=== PATIENT | female | born 1940 | race Caucasian/White ===

== ENCOUNTER 2022-06-16 10:48 | Outpatient (CLI) | payer MEDICARE, OTHER, SELFPAY ==
--- NOTE | ~2022-06-16 | MR_ITS ---
MRI of the right knee Clinical history: Pain Technique: Coronal proton density and proton density-weighted images, sagittal proton-density and T2 fat-sat images, and axial proton-density fat-saturated images were acquired. Findings: Anterior and posterior cruciate ligaments are intact. Medial collateral ligament and the la teral collateral complex are intact. Popliteus tendon is intact. There is complex, predominantly radial tearing at the posterior root of the medial meniscus. Horizont al tear probably extends into the posterior horn and body of the medial meniscus. No lateral meniscal tear seen. There is subchondral insufficiency fracture and/or developing osteochondral lesion of the medial femo ral condyle, linear T1 and T2 hypointensity, with extensive marrow edema throughout the medial femora l condyle. There is additional amorphous marrow edema in the medial tibial plateau region, likely richy ctive. 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 There is diffuse high-grade chondromalacia patella. Femoral trochlear cartilage and lateral compartme nt cartilage is relatively well preserved. Extensor mechanism is intact. Moderate to large joint effusion present. No Crum's cyst. Impression: Subchondral insufficiency fracture and/or developing osteochondral lesion of the medial femoral condy le, as detailed above, with extensive reactive marrow edema throughout the medial femoral condyle and in the medial tibial plateau. 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 Complex, predominantly radial tearing of the posterior root of the medial meniscus, with horizontal e xtending into the posterior horn and body segment. Reviewed, dictated and finalized at [facility]. WRITER Impression: Subchondral insufficiency fracture and/or developing osteochondral lesion of th e medial femoral condyle, as detailed above, with extensive reactive marrow cassandra ma throughout the medial femoral condyle and in the medial tibial plateau. 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 Complex, predominantly radial tearing of the posterior root of the medial menis cus, with horizontal extending into the posterior horn and body segment.
== END 2022-06-16 10:49 | disposition home or self-care (01) ==
PROVIDERS: PCP Family Medicine Adolescent Medicine; Visit Provider Nurse Practitioner
DX: M17.11 Unilateral primary osteoarthritis, right knee (principal)
CPT/HCPCS: 73721

== ENCOUNTER 2022-06-28 10:12 | Outpatient (CLI) | payer MEDICARE, OTHER, SELFPAY ==
--- NOTE | ~2022-06-28 | US_ITS ---
EXAMINATION:US venous doppler LE RT INDICATION:Leg swelling TECHNIQUE: Multiple grayscale, color flow and Doppler images of the right lower extremity deep venous systems were obtained and reviewed. COMPARISON:No prior studies for comparison. FINDINGS: The common femoral, superficial femoral and popliteal veins demonstrate normal respiratory variation, augmentation and compressibility. Color flow is also seen within the posterior tibial, pe roneal, greater saphenous and profunda veins. IMPRESSION: 1: No lower extremity deep venous thrombosis. Reviewed, dictated and finalized at location A. OPONE MILL WORKER
== END 2022-06-28 10:13 | disposition home or self-care (01) ==
PROVIDERS: PCP Family Medicine Adolescent Medicine; Visit Provider Nurse Practitioner
DX: M79.661 Pain in right lower leg (principal); M79.89 Other specified soft tissue disorders
CPT/HCPCS: 93971

== ENCOUNTER 2022-09-27 09:02 | Outpatient (CLI) | payer MEDICARE, OTHER, SELFPAY ==
--- NOTE | ~2022-09-27 | DEXA_ITS ---
Bone Density Report Name: DAVIS FARNSWORTH Age: 82 Sex: Female Ethnicity: White Date of : 1940 Indication: postmenopausal; screening for osteoporosis; prior fracture; Referring Provider: CLIFFORD ORELLANA Study: Bone densitometry was performed. Exam Date: September 27, 2022 Accession number: [id number] Bone Density: Region BMD T-score Z-score Classification Femoral Neck (Left) 0.736 -1.0 1.4 Normal Total Hip (Left) 1.061 1.0 3.2 Normal Femoral Neck (Right) 0.735 -1.0 1.4 Normal Total Hip (Right) 0.956 0.1 2.3 Normal Total Hip Mean 1.008 0.6 2.8 Normal World Health Organization criteria for BMD impression classify patients as: Normal (T-score at or above -1.0), Osteopenia (T-score between -1.0 and -2.5), or Osteoporosis (T-score at or below -2.5). 10-year Fracture Risk: FRAX not reported because: All T-scores for Spine Total, Hip Total, Femoral Neck at or above -1.0 Clinical Information Provided by Patient: Has had a low trauma fracture Has used the following medications: Vitamin D, Calcium Patient maximum height was 62.5 Menopause Age: 44 No regular weight bearing exercise Does not regularly consume dairy products Onset of menses at age 12 Number of children 3 Impression: The patient has normal bone mass. The patient has risk factors, including: previous fracture. Discussion: BONE DENSITY IS ABOVE THE MINIMUM DESIRABLE LEVEL AT ALL SKELETAL SITES TESTED. This patient?s bone mineral density is above the minimum desirable level (T-score -1.0 or better) at all sites measured. The patient should follow a healthful lifestyle (good nutrition with adequate calcium and vitamin D, and appropriate weight-bearing exercise). Follow-Up: Consider repeating this study in 5 years or sooner if there is some new clinical indication. Reported by: [facility] on 09/27/2022 9:27:00 AM. Reviewed, dictated and finalized at location ADudley MACHUCA
== END 2022-09-27 09:03 | disposition home or self-care (01) ==
PROVIDERS: PCP Family Medicine Adolescent Medicine; Visit Provider Family Medicine Adolescent Medicine
DX: Z78.0 Asymptomatic menopausal state (principal)
CPT/HCPCS: 77080

== ENCOUNTER 2022-10-28 15:45 | Outpatient (CLI) | payer MEDICARE, OTHER, SELFPAY ==
--- NOTE | ~2022-10-28 | MM_ITS ---
EXAMINATION: MM screening blaze BI w grabiel HISTORY: Screening mammogram TECHNIQUE: Craniocaudal and mediolateral oblique 3-D tomosynthesis images were obtained and synthetic 2-D images were generated. CAD analysis was submitted and interpreted. COMPARISON: No prior mammogram is available for comparison at this institution. BREAST PARENCHYMAL COMPOSITION:There are scattered areas of fibroglandular density. FINDINGS: No suspicious mass, calcification, or architectural distortion are identified in either yvonne ast to suggest malignancy. IMPRESSION: No mammographic evidence of malignancy. Recommend routine screening mammography in one year. BI-RADS Category 1: Negative Reviewed, dictated and finalized at location .
== END 2022-10-28 15:46 | disposition home or self-care (01) ==
PROVIDERS: PCP Family Medicine Adolescent Medicine; Visit Provider Physician Assistant
DX: Z12.31 Encounter for screening mammogram for malignant neoplasm of breast (principal)
CPT/HCPCS: 77063; 77067

== ENCOUNTER 2022-12-16 12:39 | Outpatient (RCR) | payer MEDICARE, OTHER, SELFPAY | END 2023-03-16 23:59 | disposition home or self-care (01) | LOC: ANHDMC 12:39 | PROVIDERS: PCP Family Medicine Adolescent Medicine; Visit Provider Orthopaedic Surgery | DX: E11.65 Type 2 diabetes mellitus with hyperglycemia (principal); Z71.89 Other specified counseling | CPT/HCPCS: G0108 ==

== ENCOUNTER 2022-12-30 12:46 | Outpatient (RCR) | payer MEDICARE, OTHER, SELFPAY ==
[2022-12-30 13:29] VITALS: BMI 26.9
[2022-12-30 13:30] VITALS: BMI 26.9
== END 2023-03-28 11:05 | disposition home or self-care (01) ==
LOC: ANHDMC 12:46
PROVIDERS: PCP Family Medicine Adolescent Medicine; Visit Provider Orthopaedic Surgery
DX: E11.65 Type 2 diabetes mellitus with hyperglycemia (principal); Z71.3 Dietary counseling and surveillance
CPT/HCPCS: 97802

== ENCOUNTER 2023-03-08 07:58 | Outpatient (CLI) | payer MEDICARE, OTHER, SELFPAY ==
--- NOTE | 2023-03-08 08:55 | ECG_ITS ---
Measurements Intervals [place] Rate: 76 P: 71 MS: 183 QRS: -6 QRSD: 87 T: 29 QT: 359 QTc: 404 Interpretive Statements SINUS RHYTHM ATRIAL COUPLET AND ATRIAL PREMATURE COMPLEX LOW QRS VOLTAGE IN PRECORDIAL LEADS CANNOT RULE OUT SEPTAL INFARCT, AGE INDETERMINATE BASELINE ARTIFACT- I, II, III, AVR, AVF, V4 ABNORMAL ECG COMPARED TO ECG 07/19/2018 17:46:16 NO SIGNIFICANT CHANGES Electronically Signed On 03-08-2023 9:11:07 CDT by Nathaniel Brooke D.O.
[2023-03-08 09:13] LABS: Basophils Percent Auto 0.5 % (0.2-1.2); Eosinophils Absolute Auto 0.2 K/mm3 (0-0.3); Eosinophils Percent Auto 2.2 % (0-4.4); Hematocrit 37.1 % (37.0-47.0); Hemoglobin 11.8 g/dL (12.0-15.0); Immature Granulocyte Absolute 0.03 K/mm3 (0.00-0.031); Immature Granulocyte Percent A 0.4 % (0-0.5); Lymphocytes Absolute Auto 1.62 K/mm3 (0.9-3.2); Lymphocytes Percent Auto 21.9 % (18.3-44.2); Mean Corpuscular HGB Conc 31.8 g/dl (32-36); Mean Corpuscular Hemoglobin 29.7 pg (26-34); Mean Corpuscular Volume 93.5 fl (80-100); Mean Platelet Volume 10.9 fl (7.4-10.4); Monocytes Absolute Auto 0.6 K/mm3 (0.1-0.6); Monocytes Percent Auto 8.3 % (2.6-8.5); Neutrophils Absolute Auto 4.9 K/mm3 (1.3-6.7); Neutrophils Percent Auto 66.7 % (45.5-73.1); Platelet Count Result 214 k/mm3 (150-375); Red Blood Count 3.97 M/mm3 (4.2-5.4); White Blood Count 7.4 K/mm3 (4.5-10.0)
[2023-03-08 09:19] LABS: Albumin Level 4.6 g/dL (3.5-5.1)
[2023-03-08 09:23] LABS: Anion Gap 9 mmol/L (8-16); Blood Urea Nitrogen 28 mg/dL (7-17); Calcium 9.9 mg/dL (8.4-10.2); Carbon Dioxide 29 mmol/L (22-30); Chloride 95 mmol/L (98-107); Estimated Glomerular Filt Rate 39; Glucose 121 mg/dL (65-110); Potassium 4.7 mmol/L (3.4-5.0); Sodium 133 mmol/L (137-145)
[2023-03-08 09:26] LABS: Urine Cotinine NEGATIVE
== END 2023-03-08 07:59 | disposition home or self-care (01) ==
LOC: ANHSURGERY 08:02
PROVIDERS: Anesthesiology; PCP Family Medicine Adolescent Medicine; Visit Provider Orthopaedic Surgery
DX: M17.11 Unilateral primary osteoarthritis, right knee (principal); E11.9 Type 2 diabetes mellitus without complications; Z01.818 Encounter for other preprocedural examination
CPT/HCPCS: 36415; 80048; 80307; 82040; 83036; 85025; 86850; 86880; 86900; 86901; 86902; 87081; 93005

== ENCOUNTER 2023-03-14 10:19 | Outpatient (CLI) | payer MEDICARE, OTHER, SELFPAY ==
[2023-03-14 11:23] LABS: Anion Gap 9 mmol/L (8-16); Blood Urea Nitrogen 16 mg/dL (7-17); Calcium 8.9 mg/dL (8.4-10.2); Carbon Dioxide 24 mmol/L (22-30); Chloride 88 mmol/L (98-107); Estimated Glomerular Filt Rate > 60; Glucose 201 mg/dL (65-110); Sodium 121 mmol/L (137-145)
== END 2023-03-14 10:20 | disposition home or self-care (01) ==
LOC: ANHLAB 10:21
PROVIDERS: PCP Family Medicine Adolescent Medicine; Visit Provider Family Medicine Adolescent Medicine
DX: N19 Unspecified kidney failure (principal)
CPT/HCPCS: 36415; 80048

== ENCOUNTER 2023-03-21 10:55 | Outpatient (CLI) | payer MEDICARE, OTHER, SELFPAY ==
[2023-03-21 12:24] LABS: Anion Gap 9 mmol/L (8-16); Blood Urea Nitrogen 22 mg/dL (7-17); Calcium 9.3 mg/dL (8.4-10.2); Carbon Dioxide 26 mmol/L (22-30); Chloride 92 mmol/L (98-107); Estimated Glomerular Filt Rate 60; Glucose 138 mg/dL (65-110); Potassium 4.8 mmol/L (3.4-5.0); Sodium 127 mmol/L (137-145)
== END 2023-03-21 10:56 | disposition home or self-care (01) ==
PROVIDERS: PCP Family Medicine Adolescent Medicine; Visit Provider Family Medicine Adolescent Medicine
DX: E87.1 Hypo-osmolality and hyponatremia (principal)
CPT/HCPCS: 36415; 80048

== ENCOUNTER 2023-03-23 10:23 | Outpatient (CLI) | payer MEDICARE, OTHER, SELFPAY ==
[2023-03-23 12:01] LABS: Basophils Percent Auto 0.5 % (0.2-1.2); Eosinophils Absolute Auto 0.1 K/mm3 (0-0.3); Eosinophils Percent Auto 1.6 % (0-4.4); Hematocrit 36.1 % (37.0-47.0); Hemoglobin 11.4 g/dL (12.0-15.0); Immature Granulocyte Absolute 0.05 K/mm3 (0.00-0.031); Immature Granulocyte Percent A 0.6 % (0-0.5); Lymphocytes Absolute Auto 1.72 K/mm3 (0.9-3.2); Lymphocytes Percent Auto 22.3 % (18.3-44.2); Mean Corpuscular HGB Conc 31.6 g/dl (32-36); Mean Corpuscular Hemoglobin 29.5 pg (26-34); Mean Corpuscular Volume 93.5 fl (80-100); Mean Platelet Volume 11.3 fl (7.4-10.4); Monocytes Absolute Auto 0.6 K/mm3 (0.1-0.6); Monocytes Percent Auto 8.2 % (2.6-8.5); Neutrophils Absolute Auto 5.2 K/mm3 (1.3-6.7); Neutrophils Percent Auto 66.8 % (45.5-73.1); Platelet Count Result 219 k/mm3 (150-375); Red Blood Count 3.86 M/mm3 (4.2-5.4); Red Cell Distribution Width 15.4 % (11.5-14.5); White Blood Count 7.7 K/mm3 (4.5-10.0)
== END 2023-03-23 10:24 | disposition home or self-care (01) ==
LOC: ANHLAB 10:24
PROVIDERS: PCP Family Medicine Adolescent Medicine; Visit Provider Orthopaedic Surgery
DX: D64.9 Anemia, unspecified (principal)
CPT/HCPCS: 36415; 85025

== ENCOUNTER 2023-03-31 13:29 | Outpatient (CLI) | payer MEDICARE, OTHER, SELFPAY ==
[2023-03-31 17:36] LABS: Iron 53 ug/dL (37-170)
[2023-03-31 17:52] LABS: Percent Iron Saturation 17 % (20-50)
== END 2023-03-31 13:30 | disposition home or self-care (01) ==
LOC: ANHLAB 13:29
PROVIDERS: PCP Family Medicine Adolescent Medicine; Visit Provider Family Medicine Adolescent Medicine
DX: D64.9 Anemia, unspecified (principal)
CPT/HCPCS: 36415; 82607; 82728; 82746; 83540; 83550

== ENCOUNTER 2023-05-12 10:22 | Outpatient (CLI) | payer MEDICARE, OTHER, SELFPAY ==
[2023-05-12 10:55] LABS: Appearance Urine Clear (Clear); Bacteria Urine 1+ /hpf; Bilirubin Urine Negative (Negative); Blood Urine Negative (Negative); Color Urine Yellow (Yellow); Glucose Urine UA Negative (Negative); Ketones Urine Negative (Negative); Leukocyte Esterase Ur Trace LEU/UL (Negative); Nitrate Urine Negative (Negative); Non Pathogenic Casts 0-2; Protein Urine Negative (Negative); RBC Urine 0-2 /hpf (0-2); Squamous Epithelial Cell Urine None seen /hpf (Few); Urobilinogen Urine 0.2 mg/dL (<2.0); WBC Urine 0-5 /hpf; pH Urine 5.5 (5.0-9.0)
[2023-05-12 10:57] LABS: Add Urine Microscopic? YES
[2023-05-12 10:57] LABS: Albumin Level 4.6 g/dL (3.5-5.1); Sodium 132 mmol/L (137-145)
[2023-05-12 11:02] LABS: Urine Cotinine NEGATIVE
[2023-05-12 11:02] LABS: INR 1.1; Partial Thromboplastin Time 28.4 SECONDS (22.3-36.8); Prothrombin Time 14.4 Seconds (11.1-14.7)
== END 2023-05-12 10:23 | disposition home or self-care (01) ==
PROVIDERS: Anesthesiology; PCP Family Medicine Adolescent Medicine; Visit Provider Orthopaedic Surgery
DX: M17.11 Unilateral primary osteoarthritis, right knee (principal); E87.1 Hypo-osmolality and hyponatremia; Z01.818 Encounter for other preprocedural examination
CPT/HCPCS: 36415; 80307; 81001; 82040; 84295; 85610; 85730; 86850; 86900; 86901; 87081

== ENCOUNTER 2023-05-18 01:09 | Day surgery (SDC) | payer MEDICARE, OTHER, SELFPAY ==
--- NOTE | 2023-05-11 13:53 | PC.NURSE ---
PRE-OP INSTRUCTIONS, PLEASE READ CAREFULLY Report to the Outpatient Waiting Room, entrance under the green pavilion located off [facility], at time _1130_ on date _05/18/23_. Planned Procedure Time: _1:30 PM_. PACK A SMALL OVERNIGHT BAG AND LEAVE IN THE CAR Time changes happen often and if your time is changed the preop area will call you the afternoon before. - You and your visitor will be asked to self-screen and do not enter if you have any COVID symptoms. - A mask is optional within the hospital at this time. -VISITING HOURS 8AM-8PM Patients may have clear liquids (water, carbonated beverages, clear teas, apple juice) until 3 hours prior to surgery (1030 AM) with a maximum of 20 ounces. - No food from midnight until time of surgery Take the following medications with a SIP of water the morning of surgery: _GABAPENTIN, LEVOTHYROXINE__ DO NOT STOP ANY OF YOUR OTHER PRESCRIPTION MEDICATIONS PRIOR TO SURGERY ?EXCEPT THE FOLLOWING Medications to discontinue - _IBUPROFEN PER DR. GODINEZ'S, CALL HIS OFFICE FOR INSTRUCTIONS_ Medications to discontinue per ANESTHESIA -_ALL VITAMINS AND SUPPLEMENTS 3 DAYS PRIOR TO SURGERY, Date to take last dose 05/14/23_ Please no make-up, nail faroese, hairspray, perfume, deodorant, or body powder the day of surgery. No jewelry (including any body piercings) or valuables the day of surgery, leave them at home. Please take a shower or bath the night before, or the morning of, surgery with an antibacterial soap. Wear comfortable, loose fitting clothing. Children are encouraged to wear pajamas. - Jewelry must be removed prior to entering the operating room. Rings and piercings that are not removed may be cut off. - The hospital will not accept responsibility for valuables. - Please leave all valuables, including medications, at home the day of surgery. If you are going home after surgery, a licensed reefer truck driver must drive you home. - NO public transportation without another adult if you receive anesthesia. - We recommend that an adult stay with you for 24 hours following discharge. - We also recommend that you do not drive, make important decision, drink alcoholic beverages, or take any drugs that were not prescribed by your health care provider for at least 24 hours after your discharge time. Follow any additional instructions given to you from your surgeon. If you or anyone in your household have experienced Covid symptoms in the past week, please notify your surgeon or the nurse liaison at the phone number below for possible testing. Telephone instructions given to _PATIENT_and asked if any additional questions and then verbalized understanding. Patient advised to call surgeon office or pre surgery nurse liaison [phone] if any additional questions.
[2023-05-11 13:58] VITALS: BMI 39.5
[2023-05-18] VITALS (16 sets, daily range): BP systolic 145–181; BP diastolic 54–78; PULSE 69–95; RESP 14–20; TEMP 35.6–37.1; O2SAT 96–100
--- NOTE | ~2023-05-18 | XR_ITS ---
EXAMINATION: [id number] DATE: 05/18/2023 12:52 UTILIZATION MANAGEMENT RN INDICATION: Right total knee arthroplasty TECHNIQUE: 2 views right knee FINDINGS: There is a right total knee arthroplasty in expected position. Subcutaneous gas with fluid and air in the joint and overlying skin keily are consistent with recent surgery. No evidence of p eriprosthetic fracture. IMPRESSION: 1. Recent right total knee arthroplasty. Reviewed, dictated and finalized at location B. IZATION MANAGEMENT RN
--- NOTE | 2023-05-18 07:14 | WPDHPUPDATE1 ---
History and Physical Update Update Date/Time: 05/18/23 07:14 History and Physical has been reviewed, including an updated exam of the patient. There are NO changes in the patient's condition. Risks, benefits, and alternatives have been discussed and questions answered. Patient agrees to proceed with procedure.
[2023-05-18] MEDS: ACETAMINOPHEN 500 MG TABLET 1000 MG PO (09:13)
[2023-05-18] MEDS: LACTATED RINGERS 1,000 ML 30 ML IV CONT ×2 (09:20→12:34)
[2023-05-18 09:27] LABS: Glucose Point of Care 134 mg/dl (65-105)
--- NOTE | 2023-05-18 09:31 | WPDANESEPPF ---
Anes - Initial Pre Proc Eval Procedure: Operation Date: 05/18/23 10:30 Proposed Procedures p Right Total Knee Arthroplasty - Edin Xiong MD Date/Time: 05/18/23 09:31 Surgeon: Edin Xiong MD Pre Op Diagnosis: right knee djd Patient Data Age: 82 Gender: F Height: 1.52 m Weight: 91.81 kg Allergies Allergy/AdvReac Type Severity Reaction Status Date / Time celecoxib [From Celebrex] Allergy Severe Rash Verified 05/11/23 13:43 tizanidine Allergy Unknown Loss of Verified 05/11/23 13:43 Consciousness metformin AdvReac Intermediate Diarrhea Verified 05/11/23 13:43 Home Medications Medication Instructions Recorded Confirmed Type calcium carbonate 500 mg calcium 500 mg PO DAILY 03/25/20 05/11/23 History (1,250 mg) chewable tablet (Calcium 500) glucosamine-chondroitin 500 mg-400 1 cap PO DAILY 03/25/20 05/11/23 History mg capsule vit C 250 mg-vit E 90 mg-zinc 40 1 tablet PO BID 03/25/20 05/11/23 History mg-copper 1 as-mywbhz-chsxad capsule (PreserVision AREDS-2) gabapentin 100 mg capsule 100 mg PO TID 09/01/21 05/11/23 History blood sugar diagnostic (OneTouch #50 ea 12/16/22 05/11/23 Rx Verio test strips) blood-glucose meter (OneTouch #1 ea 12/16/22 05/11/23 Rx Verio Flex Meter) lancets 30 gauge #100 ea 12/16/22 05/11/23 Rx atorvastatin 20 mg tablet 20 mg PO .qod #45 tabs 12/17/22 05/11/23 Rx pantoprazole 40 mg tablet,delayed 40 mg PO QAM #90 tabs 02/14/23 05/11/23 Rx release furosemide 20 mg tablet 20 mg PO QAM PRN edema #50 tabs 03/03/23 05/11/23 Rx cranberry extract 500 mg capsule 500 mg PO BID 03/08/23 05/11/23 History (Cranberry Concentrate) glimepiride 2 mg tablet 2 mg PO BID 03/08/23 05/11/23 History ibuprofen 800 mg tablet 800 mg PO TID PRN Pain 03/08/23 05/11/23 History levothyroxine 100 mcg tablet 100 mcg PO QAM 03/08/23 05/11/23 History lisinopril 20 mg tablet 20 mg PO QAM 03/08/23 05/11/23 History pioglitazone 30 mg tablet 30 mg PO QAM 03/08/23 05/11/23 History chlorhexidine gluconate 4 % 1 applic topical DAILY #237 mL 05/10/23 05/11/23 Rx topical liquid (Hibiclens) sulfamethoxazole 800 1 tablet PO Q12H UTI #14 tabs 05/12/23 Rx mg-trimethoprim 160 mg tablet (Bactrim DS) sitagliptin phosphate 100 mg See Rx Instructions .Route 05/13/23 Rx tablet (Januvia) .COMPLEX #90 tabs Laboratory Tests 05/18/23 09:24 POC Capillary Glucose 134 H mg/dl (65-105) Patient hx anesthesia problems: none Family hx anesthesia problems: none Results Review: All pre-operative results and documents have been reviewed as part of the pre-operative evaluation. [facility] Past Medical History Medical History Diabetes Normal colonoscopy 03/24 Osteoarthritis of right knee Rotator cuff tear arthropathy Shingles Trigger finger Surgical History Surgical History H/O knee surgery Left, TKA, 12/04/14, Dr. Tyler H/O thyroidectomy 2006 History of cholecystectomy Previous back surgery 2019 Posterior lumbar fusion Family History Family History Father No problems noted. Mother COPD (chronic obstructive pulmonary disease) Sibling Breast cancer Colon polyp Depression Diabetes mellitus Heart disease Hypertension Sibling Breast cancer Diabetes mellitus Heart disease Hypertension Sibling Diabetes mellitus Heart disease Hypertension Sibling Diabetes mellitus Heart disease Hypertension Social History Social History Smoking status: Never smoker Second hand tobacco smoke exposure: No Additional smoking assessment comments: PT DENIES ALL FORMS OF TOBACCO USE Alcohol intake: never Substance use: never Substance use type: does not use Lack of Transportation: No Lack of Food: Never True Curre
--- NOTE | 2023-05-18 10:05 | SUR.PREOP ---
0915-small scratch area noted interior right lower calf area. 1007-Dr. Xiong aware of scratch.
[2023-05-18] MEDS: TRANEXAMIC ACID 1,000MG/ISO100 1,000 MG/100 ML BAG 200 MG IVPB (10:09)
--- NOTE | 2023-05-18 10:28 | WPDANESPNB ---
Anes - Peripheral Nerve Block Date/Time: 05/18/23 10:28 I have discussed with the patient/family/POA the placement of a peripheral nerve block for post-operative pain management, including associated risks, benefits, complications, and side effects. Alternative methods of post-operative analgesia were detailed. Questions were solicited and answers provided to the satisfaction of the patient/family/POA. Time-Out: A pre-procedural Time-Out was completed immediately before starting the procedure and confirmed: Patient Identification, Site, Procedure, Patient Position and the Availability of Requisite Equipment. Clinical Indications: Acute post-operative pain management requested by the operative surgeon. Nerve Block Insertion Note Anes-nerve block: femoral right Patient position: supine Skin prep: chlorhexidine Needle: 22 gauge, stimulating, insulated echogenic needle. Needle length: 80 mm Technique: nerve stimulation lost at (mA) (0.5) Injectate: bupivacaine 0.5% with epi 5 mcg/ml (20cc) and dexamethasone (mg) (5) Observations: tolerated well Complications: none Procedure start time:: 1020 Procedure end time:: 1027
[2023-05-18] MEDS: ceFAZolin 2 GM/D5W 50 ML 2 GM/50 ML BAG IVPB ×2 (10:39→18:51)
[2023-05-18] MEDS: GENTAMICIN BONE CEMENT REFOBACIN 1 EACH TOPICAL (11:31)
[2023-05-18] MEDS: TRANEXAMIC ACID 1,000 MG/10 ML AMPUL 1000 MG IV PUSH (11:58)
--- NOTE | 2023-05-18 12:35 | W.PM.PROC2 ---
Procedure Note - Detailed Date of Procedure 05/18/23 Pre-op Diagnosis right knee djd Post-op Diagnosis Same Procedure Performed R TKA Surgeon Edin Xiong MD Anesthesia General Description of Procedure THE RIGHT KNEE WAS PREPPED AND DRAPED IN THE STERILE FASHION. THERE WAS A 10 DEGREE FLEXION CONTRACTURE. A MIDLINE SKIN INCISION WAS MADE. A MEDIAL PARAPATELLAR ARTHROTOMY WAS MADE. THE PATELLA WAS EVERTED. THERE WAS TRICOMPARTMENT DJD. AN INTRAMEDULLARY KERRY WAS PLACED IN THE FEMUR. A DISTAL FEMORAL CUT WAS MADE IN 5 DEGREES OF VALGUS REMOVING APPROXIMATELY 9 MM OF BONE FROM THE DISTAL FEMUR. THE FEMUR WAS SIZED TO 60. A 60 FEMORAL CUTTING BLOCK WAS PLACED IN 3 DEGREES OF EXTERNAL ROTATION AND IN ALIGNMENT WITH CHRISSY'S LINE AND THE TRANSEPICONDYLAR AXIS. ANTERIOR POSTERIOR AND CHAMFER CUTS WERE MADE. THE CUTS WERE EXCELLENT. NEXT AN INTRAMEDULLARY CUTTING GUIDE WAS PLACED IN THE TIBIA. A TRANS TIBIAL CUT WAS MADE ALONG THE LONG AXIS OF THE TIBIA. APPROXIMATELY 10 MM OF BONE WAS REMOVED FROM THE HIGH SIDE OF THE TIBIA. THE TIBIA WAS THEN PLANED TO A SMOOTH SURFACE. POSTERIOR FEMORAL OSTEOPHYTES WERE REMOVED FROM THE FEMORAL CONDYLES. A 67 TIBIAL TRIAL WAS PLACED IN ALIGNMENT WITH THE 1/3 MEDIAL ASPECT OF THE TIBIAL TUBERCLE. THEN A 60 FEMORAL TRIAL COMPONENT WAS PLACED. BOTH HAD EXCELLENT FITS. EVENTUALLY A 10 MM CR POLYETHYLENE TRIAL COMPONENT WAS PLACED. THE KNEE WAS TAKEN THROUGH A RANGE OF MOTION. THE KNEE CAME OUT TO FULL EXTENSION. THERE WAS NO ABNORMAL TILT TO THE PATELLA. THERE WAS GOOD A/P AND VARUS/VALGUS STABILITY. THERE WAS NO EXCESSIVE ROLL BACK WITH FLEXION. THE TRIAL COMPONENTS WERE REMOVED. THEN A 60 FEMORAL COMPONENT AND 67 TIBIAL COMPONENT WITH A 10 CR POLYETHYLENE COMPONENT WERE CEMENTED INTO PLACE. ONCE THE CEMENT WAS HARD THE KNEE WAS TAKEN THROUGH A ROM AGAIN AND FOUND TO BE STABLE WITH NO PATELLA TILT NO EXCESSIVE ROLL BACK WITH FLEXION AND GOOD STABILITY WITH COMPLETE AND FULL EXTENSION. THE KNEE WAS IRRIGATED WITH STERILE BETADINE AND WATER FOR ABOUT 3 MINUTES. THE BLEEDERS WERE CAUTERIZED. THE ARTHROTOMY WAS REPAIRED WITH NUMBER 1 VICRYL. THE SUB CUTANEOUS LAYER WITH 2-0 VICRYL AND THE SKIN WITH MIGNON. THE WOUND WAS WASHED AND A STERILE DRESSING WAS APPLIED. PATIENT WAS EXTUBATED. Estimated Blood Loss -150.0 Pathology None sent Complications No immediate complications Condition Stable Disposition PACU
[2023-05-18] MEDS: fentaNYL CITRATE INJ (*CRX) 100 MCG/2 ML VIAL 25 MCG IV PUSH ×4 (12:46→13:05)
[2023-05-18 12:56] LABS: Glucose Point of Care 150 mg/dl (65-105)
[2023-05-18] MEDS: GABAPENTIN 100 MG CAPSULE PO (16:55)
[2023-05-18] MEDS: SENNA/DOCUSATE SODIUM TABLET 2 TAB PO (16:55)
[2023-05-18] MEDS: GLIMEPIRIDE 2 MG TABLET PO (16:55)
[2023-05-18] MEDS: SODIUM CHLORIDE 0.9% IV 1,000 ML 125 ML IV CONT (16:56)
--- NOTE | 2023-05-18 17:20 | ADMGEN ---
This patient, Puja Casas, was admitted to 3 Med Surg Room 301-01 at 1445. Patient/family oriented to hospital policies and general routines including ID bracelet, bed and alarms, visiting hours, pain management, procedures, bathroom and other care routines, personal items, smoking policy, room service/diet, and visiting hours. Information on how to activate the Rapid Response Team has been discussed. Patient/Family are encouraged to report perceived risks to care and to ask questions if they do not understand what they are told or what they should do.
--- NOTE | 2023-05-18 17:23 | ADMGEN ---
This patient, Puja Casas, was admitted to 3 Med Surg Room 301-01. Patient/family oriented to hospital policies and general routines including ID bracelet, bed and alarms, visiting hours, pain management, procedures, bathroom and other care routines, personal items, smoking policy, room service/diet, and visiting hours. Information on how to activate the Rapid Response Team has been discussed. Patient/Family are encouraged to report perceived risks to care and to ask questions if they do not understand what they are told or what they should do.
[2023-05-18] MEDS: ASPIRIN 325 MG ENTERIC TABLET PO (21:02)
[2023-05-18] MEDS: oxyCODONE/ACETAMINOPHEN (*CRX) 5-325 MG TABLET 1 TABLET PO (21:03)
[2023-05-18 21:10] LABS: Glucose Point of Care 251 mg/dl (65-105)
[2023-05-19] VITALS: BP 127/56; PULSE 74; RESP 18; TEMP 36.6; O2SAT 99
[2023-05-19] MEDS: ceFAZolin 2 GM/D5W 50 ML 2 GM/50 ML BAG IVPB ×2 (02:00→13:22)
[2023-05-19 04:00] VITALS: BP 132/50; PULSE 71; RESP 14; TEMP 36.6; O2SAT 100
[2023-05-19 04:07] VITALS: O2SAT 97
[2023-05-19] MEDS: LEVOTHYROXINE SODIUM 100 MCG TABLET PO (05:55)
[2023-05-19 06:33] LABS: Basophils Percent Auto 0.3 % (0.2-1.2); Eosinophils Percent Auto 0.1 % (0-4.4); Hematocrit 29.9 % (37.0-47.0); Hemoglobin 9.4 g/dL (12.0-15.0); Immature Granulocyte Absolute 0.03 K/mm3 (0.00-0.031); Immature Granulocyte Percent A 0.3 % (0-0.5); Lymphocytes Absolute Auto 1.33 K/mm3 (0.9-3.2); Lymphocytes Percent Auto 12.5 % (18.3-44.2); Mean Corpuscular HGB Conc 31.4 g/dl (32-36); Mean Corpuscular Hemoglobin 29.6 pg (26-34); Mean Platelet Volume 11.6 fl (7.4-10.4); Monocytes Absolute Auto 1.1 K/mm3 (0.1-0.6); Monocytes Percent Auto 10.3 % (2.6-8.5); Neutrophils Absolute Auto 8.1 K/mm3 (1.3-6.7); Neutrophils Percent Auto 76.5 % (45.5-73.1); Platelet Count Result 192 k/mm3 (150-375); Red Blood Count 3.18 M/mm3 (4.2-5.4); Red Cell Distribution Width 15.3 % (11.5-14.5); White Blood Count 10.6 K/mm3 (4.5-10.0)
[2023-05-19 07:34] LABS: Anion Gap 5 mmol/L (8-16); Blood Urea Nitrogen 26 mg/dL (7-17); Calcium 9.1 mg/dL (8.4-10.2); Carbon Dioxide 24 mmol/L (22-30); Chloride 99 mmol/L (98-107); Estimated CRCL calculation 32 ml/min; Estimated Glomerular Filt Rate 43; Glucose 110 mg/dL (65-110); Sodium 128 mmol/L (137-145)
[2023-05-19 08:06] VITALS: BP 130/53; PULSE 76; RESP 16; TEMP 36.6; O2SAT 98
[2023-05-19 08:22] LABS: Glucose Point of Care 128 mg/dl (65-105)
[2023-05-19] MEDS: oxyCODONE/ACETAMINOPHEN (*CRX) 5-325 MG TABLET 2 TABLET PO (08:40)
[2023-05-19] MEDS: ONDANSETRON INJ 4 MG/2 ML VIAL IV PUSH (08:40)
[2023-05-19] MEDS: lisinopriL 20 MG TABLET PO (08:41)
[2023-05-19] MEDS: polyethylene glycoL 3350 17 GM POWD.PACK PO (08:41)
[2023-05-19] MEDS: ATORVASTATIN 20 MG TABLET PO (08:41)
[2023-05-19] MEDS: PANTOPRAZOLE 40 MG TABLET PO (08:41)
[2023-05-19] MEDS: ASPIRIN 325 MG ENTERIC TABLET PO (08:41)
[2023-05-19] MEDS: SENNA/DOCUSATE SODIUM TABLET 2 TAB PO (08:41)
[2023-05-19] MEDS: PIOGLITAZONE HCL 30 MG TABLET PO (08:41)
[2023-05-19] MEDS: GLIMEPIRIDE 2 MG TABLET PO (08:41)
[2023-05-19] MEDS: GABAPENTIN 100 MG CAPSULE PO ×2 (08:41→12:42)
--- NOTE | 2023-05-19 09:42 | PM.PNORT ---
Progress Note: A&P Assessment and Plan (1) S/P total knee arthroplasty: Qualifiers: Laterality: right Qualified Code(s): Z96.651 - Presence of right artificial knee joint Code(s): Z96.659 - Presence of unspecified artificial knee joint Status: Acute Assessment and Plan: POD #1 : Right TKA Continue PT/OT. WBAT. Walker. HIGH FALL RISK. Continue pain control. Ice Knee. Protect skin. DVT prophylaxis with Aspirin. SCDs. Incentive Spirometry Use reviewed. Monitor Dressing. Change prior to discharge. Bowel Regimen. Dispo: Home with Home Health pending progress with PT/OT Plan Reviewed postoperative course with attending MD, Dr. Xiong. Agrees with current plan as indicated above. Subjective Subjective Date/Time Seen: 05/19/23 09:42 Post Op day: 1 Interval history: POD #1: Right TKA Patient doing well. Some complaints of nausea today. Overall, feeling well. Hopeful for discharge home this afternoon after another session with PT. Review of Systems Review of Systems: All systems reviewed & are unremarkable except as noted in HPI and below Constitutional: Constitutional: Denies fever(s) and Denies headache(s) ENT: Denies headache(s) Cardiovascular: Cardiovascular: Denies chest pain, Denies diaphoresis, Denies palpitations and Denies dyspnea Respiratory: Respiratory: Denies dyspnea Gastrointestinal: Gastrointestinal: Denies abdominal pain, Denies constipation, Denies nausea and Denies vomiting Genitourinary: Genitourinary: Reports nocturia and Denies dysuria Musculoskeletal: Musculoskeletal: Reports arthralgias (Right Knee ) and Reports joint swelling (Right Knee ) Neurologic: Denies headache(s) Endocrine: Endocrine: Denies palpitations Exam Const: General: comfortable and no acute distress Resp: Effort & Inspection: normal respiratory effort Cardio: Rate: regular rate Rhythm: regular rhythm GI: GI Palp: Yes Soft to palpation, No Tenderness to palpation present (GI) and No Guarding due to palpation present (GI) Skin: General skin exam: wounds noted Wounds: wounds noted Other: Incision c/d/i. No surrounding redness/warmth. No hematoma. Mild ecchymosis. No wound dehiscence Neuro: Cognition (Neuro): normal cognition Other: NV intact aside from block. Moves toes. Sensation intact to light touch. +ankle dorsiflexion/plantarflexion. Extrem: Right lower extremity: normal to inspection, knee Details: tenderness (diffuse, mild ) Location: of the patella, swelling (diffuse, consistent with surgical intervention ), abnormal ROM Details: pain with active ROM during, pain with passive ROM during and with range as follows (limited due to recent surgical intervention ); able to extend lower leg actively and ecchymosis (mild ), lower leg (Negative Rebecca's Sign ) Details: normal to inspection; no erythema and no tenderness, ankle (+ankle dorsiflexion/plantarflexion ) Details: normal to inspection, no edema and normal ROM; no tenderness, no swelling and no ecchymosis and foot Details: normal capillary refill, normal to inspection, vascular exam Details: dorsalis pedis pulse present and motor-sensory exam Details: light-touch normal; no tenderness Left lower extremity: normal to inspection Psych: Mental Status: mental status grossly normal Objective Data Vital Signs Vital Signs: Vital Signs - 24 hr 05/18/23 12:34 05/18/23 12:45 05/18/23 13:00 Temperature 37.0 C Pulse Rate 95 81 82 Respiratory Rate 18 14 16 Blood Pressure 154/69 H 160/65 H 145/61 H Pulse Oximetry 99 100 98 Oxygen Delivery Simple Face Mask Simple Face Mask Room Air Oxygen Flow Rate 8 8 05/18/23 13:15 05/18/23 13:30 05/18/23 13:45 Temperature Pulse Rate 80 81 81 Respiratory Rate 16 16 18 Blood Pressure 159/64 H 159/78 H 166/77 H Pulse Oximetry 96 100 100 Oxygen Delivery Nasal Cannula Nasal Cannula Nasal Cannula Oxygen Flow Rate 2 2 2 05/18/23 13:55 05/18/23 14:00 05/18/23 1
[2023-05-19 12:06] VITALS: BP 139/48; PULSE 94; RESP 18; TEMP 36.9; O2SAT 97
[2023-05-19 12:12] LABS: Glucose Point of Care 206 mg/dl (65-105)
[2023-05-19] MEDS: oxyCODONE/ACETAMINOPHEN (*CRX) 5-325 MG TABLET 1 TABLET PO (12:41)
--- NOTE | 2023-05-19 13:55 | P.PNAN_ITS ---
Anes - Prog Note Post-Op Date/Time: 05/19/23 13:55 Vital Signs: Last Vital Signs Temp 36.9 C 05/19/23 12:06 Pulse 94 05/19/23 12:06 Resp 18 05/19/23 12:06 BP 139/48 L 05/19/23 12:06 Pulse Ox 97 05/19/23 12:06 O2 Del Method Room Air 05/19/23 08:08 O2 Flow Rate 2 05/18/23 13:45 Pain Score (VAS): 0 I/O: Intake & Output 05/18/23 05/19/23 05/19/23 23:59 07:59 15:59 Intake Total 50 350 240 Balance 50 350 240 Laboratory Tests 05/19/23 05:56 05/19/23 05:56 05/18/23 05/19/23 05/19/23 21:08 05:56 07:39 WBC 10.6 H RBC 3.18 L Hgb 9.4 L Hct 29.9 L MCV 94.0 MCH 29.6 MCHC 31.4 L RDW 15.3 H Plt Count 192 MPV 11.6 H Immature Gran % (Auto) 0.3 Neut % (Auto) 76.5 H Lymph % (Auto) 12.5 L [place] % (Auto) 10.3 H Eos % (Auto) 0.1 Baso % (Auto) 0.3 Lymph # (Auto) 1.33 [place] # (Auto) 1.1 H Eos # (Auto) 0.0 Baso # (Auto) 0.0 Abs Immat Gran (auto) 0.03 Absolute Neuts (auto) 8.1 H Absolute Nucleated RBC 0.0 Nucleated RBC % 0.0 Sodium 128 L Potassium 5.0 Chloride 99 Carbon Dioxide 24 Anion Gap 5 L BUN 26 H Creatinine 1.20 H Estim Creat Clear Calc 32 Estimated GFR 43 L Glucose 110 POC Capillary Glucose 251 H 128 H Calcium 9.1 05/19/23 12:03 WBC RBC Hgb Hct MCV MCH MCHC RDW Plt Count MPV Immature Gran % (Auto) Neut % (Auto) Lymph % (Auto) [place] % (Auto) Eos % (Auto) Baso % (Auto) Lymph # (Auto) [place] # (Auto) Eos # (Auto) Baso # (Auto) Abs Immat Gran (auto) Absolute Neuts (auto) Absolute Nucleated RBC Nucleated RBC % Sodium Potassium Chloride Carbon Dioxide Anion Gap BUN Creatinine Estim Creat Clear Calc Estimated GFR Glucose POC Capillary Glucose 206 H Calcium Patient Feedback: Patient satisfied with anesthetic care. some nausea present
--- NOTE | 2023-05-19 14:15 | PM.DS ---
DS: Admitting Diagnosis Discharge Date 05/19/2023 Admitting Diagnosis Right Knee DJD DS: Discharge Diagnosis Discharge Diagnosis (1) S/P total knee arthroplasty: Qualifiers: Laterality: right Qualified Code(s): Z96.651 - Presence of right artificial knee joint Code(s): Z96.659 - Presence of unspecified artificial knee joint Status: Acute Assessment and Plan: POD #1 : Right TKA Continue PT/OT. WBAT. Walker. HIGH FALL RISK. Continue pain control. Ice Knee. Protect skin. DVT prophylaxis with Aspirin. SCDs. Incentive Spirometry Use reviewed. Monitor Dressing. Change prior to discharge. Bowel Regimen. Dispo: Home with Home Health pending progress with PT/OT Plan Reviewed postoperative course with attending MD, Dr. Xiong. Agrees with current plan as indicated above. DS: Summary Hospital Course Reason for hospitalization: RIGHT TKA Hospital Course: 82 year old female admitted s/p Right TKA for postoperative medical management, pain control and mobilization with PT/OT. Patient progressed well with PT/OT. Pain and vitals remained stable throughout. The patient has been cleared to be discharged home with home health at this time. All discharge care instructions reviewed at depth. New medications reviewed. Follow up planned for 3 weeks in the outpatient orthopedic clinic with Dr. Xiong. Dr. Xiong in agreement with discharge. Status at Discharge Functional status at discharge: uses cane/walker Overall status at discharge: patient is progressing back to baseline Time Spent with Patient Time attestation: Total time spent providing and/or coordinating discharge services: Exam Const: General: comfortable and no acute distress Resp: Effort & Inspection: normal respiratory effort Cardio: Rate: regular rate Rhythm: regular rhythm Skin: General skin exam: wounds noted Wounds: wounds noted Other: Incision c/d/i. No surrounding redness/warmth. No hematoma. Mild ecchymosis. No wound dehiscence Neuro: Cognition (Neuro): normal cognition Other: NV intact aside from block. Moves toes. Sensation intact to light touch. +ankle dorsiflexion/plantarflexion. Extrem: Right lower extremity: normal to inspection, knee Details: tenderness (diffuse, mild ) Location: of the patella, swelling (diffuse, consistent with surgical intervention ), abnormal ROM Details: pain with active ROM during, pain with passive ROM during and with range as follows (limited due to recent surgical intervention ); able to extend lower leg actively and ecchymosis (mild ), lower leg (Negative Rebecca's Sign ) Details: normal to inspection; no erythema and no tenderness, ankle (+ankle dorsiflexion/plantarflexion ) Details: normal to inspection, no edema and normal ROM; no tenderness, no swelling and no ecchymosis and foot Details: normal capillary refill, normal to inspection, vascular exam Details: dorsalis pedis pulse present and motor-sensory exam Details: light-touch normal; no tenderness Left lower extremity: normal to inspection Psych: Mental Status: mental status grossly normal DS: Data Data Completed and Pending Labs on day of discharge: Labs from last 24 hours 05/19/23 05/19/23 05/19/23 12:03 07:39 05:56 WBC 10.6 H RBC 3.18 L Hgb 9.4 L Hct 29.9 L MCV 94.0 MCH 29.6 MCHC 31.4 L RDW 15.3 H Plt Count 192 MPV 11.6 H Immature Gran % (Auto) 0.3 Neut % (Auto) 76.5 H Lymph % (Auto) 12.5 L [place] % (Auto) 10.3 H Eos % (Auto) 0.1 Baso % (Auto) 0.3 Lymph # (Auto) 1.33 [place] # (Auto) 1.1 H Eos # (Auto) 0.0 Baso # (Auto) 0.0 Abs Immat Gran (auto) 0.03 Absolute Neuts (auto) 8.1 H Absolute Nucleated RBC 0.0 Nucleated RBC % 0.0 Sodium 128 L Potassium 5.0 Chloride 99 Carbon Dioxide 24 Anion Gap 5 L BUN 26 H Creatinine 1.20 H Estim Creat Clear Calc 32 Estimated GFR 43 L Glucose 110 POC Capillary
== END 2023-05-19 15:45 | disposition home health service (06) ==
LOC: ANHSURGERY 08:33 → ANH3MEDSUR 14:26
PROVIDERS: PCP Family Medicine Adolescent Medicine; Visit Provider Orthopaedic Surgery
PROC: (CPT 27447; principal; 2023-05-18 10:30)
DX: M17.11 Unilateral primary osteoarthritis, right knee (principal); G89.18 Other acute postprocedural pain; E11.9 Type 2 diabetes mellitus without complications; E89.0 Postprocedural hypothyroidism; Z79.84 Long term (current) use of oral hypoglycemic drugs; Z98.1 Arthrodesis status; E66.01 Morbid (severe) obesity due to excess calories; Z68.39 Body mass index [BMI] 39.0-39.9, adult
CPT/HCPCS: 27447; 64447; 36415; 73560; 80048; 82948; 85025; 97110; 97116; 97161; 97165; 97530; A9270; C1713; C1776; J0171; J0690; J1100; J1170; J2250; J2270; J2405; J2704; J2795; J3010; J7030; J7120

== ENCOUNTER 2023-07-20 14:00 | Outpatient (RCR) | payer MEDICARE, OTHER, SELFPAY ==
--- NOTE | 2023-06-22 13:37 | OPREHPOC ---
Outpatient Therapy Plan of Care This is a Multidisciplinary Plan of Care that may contain components documented by all disciplines (PT, OT, and ST.) PT Problem 1 PT Problem #1 Knowledge Deficit PT Goal 1 Goal 1. Patient will perform independent HEP Target Visit 8 PT Problem 2 PT Problem #2 Impaired Gait PT Goal 1 Goal 1. Patient will ambulate at least 320 feet on 2 minute walk test with rollator Target Visit 8 PT Problem 3 PT Problem #3 Impaired Range of Motion PT Goal 1 Goal 1. Improve right knee flexion to 110 degrees for stair navigation Target Visit 8 PT Problem 4 PT Problem #4 Impaired Functional ADLs PT Goal 1 Goal 1. Patient able to do all normal ADL's without pain or limitation due to knee Target Visit 8
--- NOTE | 2023-06-22 13:37 | PTOPEVAL1 ---
Assessment and note entered by Soledad Givens DPT Evaluation Information Assessment Status Evaluation Subjective Information Pt had R TKA on 05/18/23. Had home health for a few weeks and has been discharged. Reports no real pain in the last week, just noticing some stiffness. States her pain has greatly decreased since before surgery. Is using a rollator at all times currently, did use one prior to surgery due to back issues and previous surgeries. Pt has stairs to basement at home and 1 step into her laundry room. Is not doing the stairs now much but normally would be. Pt has just started driving again. Pt has started doing some cooking and cleaning but again not as much as she normally would be. Patient goal: see what therapy can do. Returns to [place] in September. Reported Pain Level Pain Score 0: Self Report Assessment PT Clinical Summary The patient is presenting to skilled therapy s/p R TKA on 05/18/23. She presents with decreased range of motion and strength which are contributing to her difficulty performing typical ADL's and navigating stairs with a reciprocal pattern. She reports no pain recently, just stiffness. She will highly benefit from therapy to address these impairments in order to return to prior level of function. LEFS- 56/80=70% function Plan of Care Interventions Electrical Stimulation,Gait Training,Hot Pack/Cold Pack,Manual Therapy,Neuro Re-education,Patient/ Caregiver Education,Therapeutic Activities, Therapeutic Exercise PT Services Indicated Yes Treatment Frequency and 2 times a week for 8 visits Duration These treatments will address the objective and functional deficits as defined above. The patient will be advanced safely and appropriately in order for the patient to progress towards his/her prior level of function. Additional exercises will be introduced and as well as a comprehensive home exercise program upon discharge, if needed, ?to ensure carryover of functional gains achieved in the clinic. This treatment plan has been reviewed and agreement upon by the patient.
--- NOTE | 2023-07-20 14:37 | PTOPDC ---
Assessment and note entered by Brooklyn Ortiz, PT Discharge Information Assessment Status Discharge Subjective Information doing her exercises at home; use ice as needed, knee is still swollen; is doing of her normal activities at home; does not go into her basement , and has not gone down there in years; ready to be finished with therapy. Reported Pain Level Pain Score 0: Self Report knee pain Additional Pain Score Comments back pain: 2-9/10; increase pain with standing/ walking 10 min at most; use motorized scooter with shopping; take tylenol 2x/day; use ice PRN; takes gabapentin for her back pain; no pain in knee Assessment PT Clinical Summary Puja has received a total of 9 PT sessions. Compared to the initial evaluation: she has improved with increased strength of R LE; 2 minute walking test distance increased from 278 to 320 feet with rollator; sitting active knee ROM 0-105'; indep with HEP for R knee; The goals were partially achieved. Discharge PT services, to continue with HEP. Plan of Care PT Services Indicated No
== END 2023-07-20 15:09 | disposition home or self-care (01) ==
LOC: ANHPT 14:00
PROVIDERS: PCP Family Medicine Adolescent Medicine; Visit Provider Orthopaedic Surgery
DX: Z47.1 Aftercare following joint replacement surgery (principal); Z96.651 Presence of right artificial knee joint
CPT/HCPCS: 97110; 97112; 97140; 97161; 97530

== ENCOUNTER 2025-02-25 11:51 | Outpatient (CLI) | payer MEDICARE, OTHER, SELFPAY ==
--- NOTE | ~2025-02-25 | XR_ITS ---
EXAM/ PROCEDURE: XR hand LT 2V - 02/25/2025 11:55 CDT HISTORY: 84 years old Female with M79.642 - Pain in left hand COMPARISON: None available TECHNIQUE: Two view(s) FINDINGS/ IMPRESSION: Nondisplaced fracture of the fifth metacarpal bone.Diffuse soft tissue swelling. Joint space narrowing, subchondral sclerosis, subchondral cyst formation and osteophyte formation, compatible with moderate to severe osteoarthritis. Reviewed, dictated and finalized at location N.
== END 2025-02-25 11:52 | disposition home or self-care (01) ==
LOC: MICIMG 11:52
PROVIDERS: PCP Family Medicine Adolescent Medicine; Visit Provider Family Medicine Adolescent Medicine
DX: M79.642 Pain in left hand (principal)
CPT/HCPCS: 73120

== ENCOUNTER 2025-03-15 09:57 | Outpatient (CLI) | payer MEDICARE, OTHER, SELFPAY ==
--- NOTE | ~2025-03-15 | XR_ITS ---
EXAMINATION: XR chest 2V, 03/15/2025 10:02 CDT HISTORY: J40 - Bronchitis, not specified as acute or chronic COMPARISON: No comparisons available. Technique: 2 views obtained. Findings: The lungs are clear, no effusion. No pneumothorax. Heart is normal size. Mediastinal and hilar contours are within normal limits. Bony thorax no acute abnormality. Impression: No acute cardiopulmonary abnormality. Reviewed, dictated and finalized at location P. Impression: No acute cardiopulmonary abnormality.
== END 2025-03-15 09:58 | disposition home or self-care (01) ==
LOC: MICIMG 09:59
PROVIDERS: PCP Family Medicine Adolescent Medicine; Visit Provider Family Medicine Adolescent Medicine
DX: J40 Bronchitis, not specified as acute or chronic (principal)
CPT/HCPCS: 71046